=== PATIENT | male | born 1965 | race Caucasian/White ===

== ENCOUNTER → 2017-10-31 12:11 | Outpatient (CLI) | payer OTHER, SELFPAY ==
--- NOTE | 2017-10-31 12:41 | EKG12_ITS ---
Test Reason : PRE OP Blood Pressure : / mmHG Vent. Rate : 063 BPM Atrial Rate : 063 BPM P-R Int : 158 ms QRS Dur : 088 ms QT Int : 436 ms P-R-T Axes : 039 023 051 degrees QTc Int : 446 ms Normal sinus rhythm Normal ECG Confirmed by IFRAH DUKE, SELENE ([id number]), movie editor CLARKE TROTTER ([id number] on 11/01/2017 11:53:05 AM Referred By: Francisco Sanchez Confirmed By:SELENE RG MD
[2017-10-31 13:50] LABS: Hematocrit 45.2 % (40-54); Hemoglobin 15.3 g/dl (13.0-16.5); Mean Corp Hgb Conc 33.8 g/gl (32-36); Mean Corpuscular Hgb 31.9 pg (27.0-32.0); Mean Corpuscular Volume 94.2 fL (80-94); Platelet Count 189 K/mm3 (150-450); RBC Distribution Width CV 13.7 % (11.6-14.6); RBC Distribution Width SD 45.9 fl (35.1-43.9); White Blood Count 6.7 K/mm3 (4.4-11.0)
[2017-10-31 13:53] LABS: Scan Indicated on CBC? Y/N NO
[2017-10-31 14:03] LABS: Anion Gap 9 (5-15); BUN 14 mg/dL (7-18); BUN/Creat Ratio 15.2 RATIO (10-20); Calcium,Total 8.7 mg/dL (8.5-10.1); Chloride 104 mmol/L (98-107); Creatinine, Serum 0.92 mg/dL (0.70-1.30); EST Glomerular Filtration Rate 92 mL/min (>60); Est Glom Filt Rate - Afr Amer 112 mL/min (>60); Glucose 89 mg/dL (70-110); Potassium 4.1 mmol/L (3.5-5.1); Sodium Level 140 mmol/L (136-145)
== END ==
PROVIDERS: Visit Provider Orthopaedic Surgery
DX: Z01.810 Encounter for preprocedural cardiovascular examination (principal); Z01.818 Encounter for other preprocedural examination
CPT/HCPCS: 36415; 80048; 85027; 93005